=== PATIENT | male | born 1955 | race Caucasian/White ===

== ENCOUNTER → 2016-10-05 | Day surgery (SDC) | payer OTHER ==
[~2016-10-05] MED LIST: BUPIVACAINE HCL PF 0.25% 30 ML VIAL ONE; KETOROLAC TROMETHAMINE 30 MG/ML (IVP) VIAL IV PUSH ONE; LACTATED RINGER'S 1000 ML INJ 1,000 ML ONE; MIDAZOLAM HCL 2 MG/2 ML VIAL ONE; ONDANSETRON HCL 4 MG/2 ML VIAL IV PUSH ONE; PROPOFOL 200 MG/20 ML AMP IV ONE; TRIAMCINOLONE ACETONIDE 40 MG/ML VIAL ONE; ceFAZolin 2 GM PREMIX 50 ML ONE
--- NOTE | 2016-10-06 11:30 | MP ---
cc: LUIS CARLOS KIM DPM DATE OF SURGERY 10/06/2016 PREOPERATIVE DIAGNOSIS 1. 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 2. Plantar fibroma POSTOPERATIVE DIAGNOSIS 1. 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 2. Plantar fibroma PROCEDURES PERFORMED 1. Removal of the first MPJ implant. 2. First MPJ implant arthroplasty 3. Trigger point injection of plantar fibroma corticosteroid injection. MATERIALS [facility] Beltran Flexible span hinged toe implant no grommets used. SPECIMEN None ESTIMATED BLOOD LOSS Less than 30 mL COMPLICATIONS None COMPLICATIONS None ANESTHESIA General INJECTABLES 20 mL of 0.25% Marcaine plain with 0.5 mL of Kenalog 40 tourniquet 60 minutes at a setting of 250 mEq PLAN OF ACTIVITY PACU then DC home once stable per same-day surgery criteria. JUSTIFICATION FOR THE PROCEDURE This is a pleasant 60-year-old male who has a history of a first MPJ implant arthroplasty. The patient showed significant hypertrophic ossification and chronic pain. After exhausting conservative treatment, the patient wished for surgical intervention. The surgical intervention was stated as such revision of implants, swapping out of the implant for a Beltran implant or distraction first MPJ arthrodesis. We devised a plan to move forward with swapping out of the implant for a Beltran flexible implant with removing of the metallic hemiimplant of the first MPJ. The patient understood there will be possible numbness, possible recurrence of pain, deformity, neuritis and instability of the digit. No guarantees were given or implied regarding the outcome. PROCEDURE IN DETAIL Under mild sedation, the patient was brought into the operating room, placed on the operating room table in the supine position. Following the induction of general anesthesia, local anesthesia was attained about the forefoot utilizing standard block fashion. The patient's foot was then scrubbed, prepped and draped in the usual aseptic fashion. The right foot was elevated, exsanguinated and a previously placed mid ankle tourniquet was inflated to 215 mmHg. An incision was made over the dorsal aspect of the first MPJ. This was noted to have significant scar tissue. The EHL was identified and a Z tendon lengthening took place allowing for capsular exposure. A full-thickness capsular incision was made. There was noted to be hypertrophic bone over a first MPJ smooth contoured round metallic implant. The head of metallic implant was then removed and then the stem was then removed utilizing the screwdriver from the implant set. Next, utilizing power instrumentation, the head of the first MPJ and the base of the proximal phalanx was then resected allowing for enough space in range of motion. At this time, a McGlamry elevator was introduced deep into the first MPJ freeing up sesamoidal adhesions. Next, utilizing a combination of the reaming system, as well as rotating bur, the base of the proximal phalanx and the head of the first metatarsal was prepared for the stems of the Beltran implant. The wound was then flushed with copious amounts of normal saline. The trial size was then put in and brought through a range of motion. There was significant improvement of dorsiflexion and plantar flexion without any dislocation of the implant. We then deemed the size 5S was the appropriate implant. The wound was then flushed again with copious amounts of normal saline. The implant was then positioned without touching any skin. The longer stem of the implants went at the first metatarsal and the shorter went to the base of the proximal phalanx. It was then brought through a range of motion under fluoroscopy. There is no instability, excellent alignment, improved hallux abductovalgus. At this time, the extensor hallucis longus tendon was then repaired utilizing 2-0 Ethibond. Capsular closure took place utilizing 3-0 Vicryl. Skin was closed utilizing 3-0 nylon. Upon relieving the tourniquet, there was a prompt hyperemic response to all digits without any delayed capillary fill time. Non-excessive bleeding noted at the surgery site. A mixture of 1 cc of 0.25% Marcaine plain, as well as a 1/2 cc of Kenalog 40 was infiltrated into a hard nodular plantar mid fascia area consistent with a fibroma. Bandage applied. The patient was transferred from OR to PACU with all vital signs stable. He was extubated uneventfully. He is heel transfer weight-bear. He will ice and elevate. I will see the patient within three to five days. ROSE MARIE Dhillon/COY /3:48 PM /11:20 AM
== END | disposition home or self-care (01) ==
LOC: ESDC 12:38
PROVIDERS: ATTEND Podiatrist Foot & Ankle Surgery
CPT/HCPCS: 01480; 01991; 20550; 20680; 28291; 73620 ×2; 76000 ×2; C1713; J0690; J1885; J2250; J2405; J3010; J3301; J7120